=== PATIENT | female | born 1980 | race Caucasian/White ===

== ENCOUNTER 2017-09-19 18:17 | Emergency (ER) | payer MEDICAID ==
[~2017-09-19] VITALS: Ht 162.6 cm; Wt 75.0 kg
[2017-09-19 18:19] VITALS: BP 93/55; PULSE 83; RESP 22; TEMP 98.5; O2SAT 100
[2017-09-19] MEDS ORDERED: NORE-44 PO (18:24)
[2017-09-19] MEDS ORDERED: SODIUM CHLOR 0.9% 1000 ML INJ 1,000 ML IV ONE (18:30)
[2017-09-19] MEDS ORDERED: LORazepam 2 MG/ML VIAL IV PUSH ONE (18:30)
[2017-09-19 18:35] VITALS: BP 135/94; PULSE 81; RESP 19; O2SAT 100
--- NOTE | 2017-09-19 18:36 | PD ---
HPI Chief Complaint: Anxiety Time Seen by Provider: 18:26 Travel History International Travel<30 days: No Contact w/Intl Traveler<30days: No Traveled to known affect area: No History of Present Illness HPI 36yo F with PMH of panic attacks here with another episode of panic attack. Said she has been feeling generalized fatigue for a few days. Pt is hyperventilating and has numbness in her entire body but more in fingers and around mouth. Pt denies any chest pain, vomiting, abdominal pain. PFSH Past Medical History Anxiety: Yes Medical other: Yes (MITRAL VALVE REGERG) ?: Not : 2 Para: 1 : 1 Past Surgical History Section: Yes Social History Alcohol Use: Yes (OCC) Tobacco Use: No Substance Use: No Allergies-Medications (Allergen,Severity, Reaction): Coded Allergies: No Known Allergies (Unverified , 09/19/17) Reported Meds & Prescriptions Reported Meds & Active Scripts Active Reported Microgestin 1.5/30 (Norethindrone-Ethinyl Estradiol) 1.5-30 Mg-Mcg Tab 1 Tab PO DAILY Review of Systems Except as stated in HPI: all other systems reviewed are Neg Physical Exam Narrative GENERAL: 36yo F anxious appearing. SKIN: Focused skin assessment warm/dry. HEAD: Atraumatic. Normocephalic. EYES: Pupils equal and round at 3mm bilaterally. EOMI. ENT: No nasal bleeding or discharge. Mucous membranes pink and moist. NECK: Trachea midline. No JVD. CARDIOVASCULAR: Regular rate and rhythm. No murmur appreciated. RESPIRATORY: No accessory muscle use. Clear to auscultation. Breath sounds equal bilaterally. GASTROINTESTINAL: Abdomen soft, non-tender, nondistended. MUSCULOSKELETAL: No obvious deformities. No clubbing. No cyanosis. No edema. NEUROLOGICAL: Awake and alert. No obvious cranial nerve deficits. Motor grossly within normal limits in all extremities. Normal speech. PSYCHIATRIC: Anxious. Data Data Last Documented VS Vital Signs Date Time Temp Pulse Resp B/P (MAP) Pulse Ox O2 Delivery O2 Flow Rate FiO2 09/19/17 19:35 77 16 132/91 (105) 98 Room Air 09/19/17 18:19 98.5 Orders Orders Complete Blood Count With Diff (09/19/17 18:26) Basic Metabolic Panel (Bmp) (09/19/17 18:26) Thyroid Stimulating Hormone (09/19/17 18:26) Sodium Chlor 0.9% 1000 Ml Inj (Ns 1000 M (09/19/17 18:30) Lorazepam Inj (Ativan Inj) (09/19/17 18:30) Potassium Chloride (Kcl) (09/19/17 19:30) Ed Discharge Order (09/19/17 19:36) Labs Laboratory Tests Test 09/19/17 18:15 White Blood Count 5.2 TH/MM3 Red Blood Count 5.06 MIL/MM3 Hemoglobin 13.9 GM/DL Hematocrit 39.9 % Mean Corpuscular Volume 79.0 FL Mean Corpuscular Hemoglobin 27.4 PG Mean Corpuscular Hemoglobin Concent 34.7 % Red Cell Distribution Width 12.8 % Platelet Count 273 TH/MM3 Mean Platelet Volume 8.5 FL Neutrophils (%) (Auto) 45.4 % Lymphocytes (%) (Auto) 41.6 % Monocytes (%) (Auto) 10.6 % Eosinophils (%) (Auto) 1.9 % Basophils (%) (Auto) 0.5 % Neutrophils # (Auto) 2.4 TH/MM3 Lymphocytes # (Auto) 2.2 TH/MM3 Monocytes # (Auto) 0.6 TH/MM3 Eosinophils # (Auto) 0.1 TH/MM3 Basophils # (Auto) 0.0 TH/MM3 CBC Comment DIFF FINAL Differential Comment Blood Urea Nitrogen 9 MG/DL Creatinine 0.86 MG/DL Random Glucose 88 MG/DL Calcium Level 8.2 MG/DL Sodium Level 138 MEQ/L Potassium Level 3.4 MEQ/L Chloride Level 105 MEQ/L Carbon Dioxide Level 22.3 MEQ/L Anion Gap 11 MEQ/L Estimat Glomerular Filtration Rate 74 ML/MIN Thyroid Stimulating Hormone 3rd Gen 2.880 uIU/ML [facility] Medical Decision Making Medical Screen Exam Complete: Yes Emergency Medical Condition: Yes Interpretation(s) EKG: NSR 37bpm. Normal axis. No ST segment elevation. Differential Diagnosis Anxiety vs. electrolyte abnormality vs. hyperthyroidism Narrative Course 36yo F with history of panic attacks here with c/o what sounds like an episode of panic attack. Pt said she has been more fatigue lately and labs including TSH has been drawn. Pt given ativan. Seen at the end of my shift and sign out to Dr. Canseco to reevaluate and follow up labs. Diagnosis Primary Impression: Anxiety Viktoria Solis DO Sep 19, 2017 18:36
[2017-09-19 18:44] LABS: AUTOMATED NEUTROPHIL # 2.4 TH/MM3 (1.8-7.7); BASOPHIL % 0.5 % (0.0-2.0); EOSINOPHIL # 0.1 TH/MM3 (0-0.4); EOSINOPHIL % 1.9 % (0.0-4.0); HEMATOCRIT 39.9 % (35.0-46.0); HEMOGLOBIN 13.9 GM/DL (11.6-15.3); LYMPH % 41.6 % (9.0-44.0); LYMPHOCYTE # 2.2 TH/MM3 (1.0-4.8); MEAN CORPUSCULAR HEMOGLOBIN 27.4 PG (27.0-34.0); MEAN CORPUSCULAR HGB CONC 34.7 % (32.0-36.0); MEAN PLATELET VOLUME 8.5 FL (7.0-11.0); MONO % 10.6 % (0.0-8.0); MONOCYTE # 0.6 TH/MM3 (0-0.9); NEUT % 45.4 % (16.0-70.0); PLATELET COUNT 273 TH/MM3 (150-450); RED BLOOD COUNT 5.06 MIL/MM3 (4.00-5.30); RED CELL DISTRIBUTION WIDTH 12.8 % (11.6-17.2); WHITE BLOOD COUNT 5.2 TH/MM3 (4.0-11.0)
[2017-09-19 19:01] LABS: BICARBONATE 22.3 MEQ/L (21.0-32.0); CALCIUM 8.2 MG/DL (8.5-10.1); CREATININE 0.86 MG/DL (0.50-1.00)
--- NOTE | 2017-09-19 19:26 | PD ---
Data Data Last Documented VS Vital Signs Date Time Temp Pulse Resp B/P (MAP) Pulse Ox O2 Delivery O2 Flow Rate FiO2 09/19/17 18:35 81 19 135/94 (108) 100 Room Air 09/19/17 18:19 98.5 Orders Orders Complete Blood Count With Diff (09/19/17 18:26) Basic Metabolic Panel (Bmp) (09/19/17 18:26) Thyroid Stimulating Hormone (09/19/17 18:26) Sodium Chlor 0.9% 1000 Ml Inj (Ns 1000 M (09/19/17 18:30) Lorazepam Inj (Ativan Inj) (09/19/17 18:30) Potassium Chloride (Kcl) (09/19/17 19:30) Labs Laboratory Tests Test 09/19/17 18:15 White Blood Count 5.2 TH/MM3 Red Blood Count 5.06 MIL/MM3 Hemoglobin 13.9 GM/DL Hematocrit 39.9 % Mean Corpuscular Volume 79.0 FL Mean Corpuscular Hemoglobin 27.4 PG Mean Corpuscular Hemoglobin Concent 34.7 % Red Cell Distribution Width 12.8 % Platelet Count 273 TH/MM3 Mean Platelet Volume 8.5 FL Neutrophils (%) (Auto) 45.4 % Lymphocytes (%) (Auto) 41.6 % Monocytes (%) (Auto) 10.6 % Eosinophils (%) (Auto) 1.9 % Basophils (%) (Auto) 0.5 % Neutrophils # (Auto) 2.4 TH/MM3 Lymphocytes # (Auto) 2.2 TH/MM3 Monocytes # (Auto) 0.6 TH/MM3 Eosinophils # (Auto) 0.1 TH/MM3 Basophils # (Auto) 0.0 TH/MM3 CBC Comment DIFF FINAL Differential Comment Blood Urea Nitrogen 9 MG/DL Creatinine 0.86 MG/DL Random Glucose 88 MG/DL Calcium Level 8.2 MG/DL Sodium Level 138 MEQ/L Potassium Level 3.4 MEQ/L Chloride Level 105 MEQ/L Carbon Dioxide Level 22.3 MEQ/L Anion Gap 11 MEQ/L Estimat Glomerular Filtration Rate 74 ML/MIN Thyroid Stimulating Hormone 3rd Gen 2.880 uIU/ML MDM Medical Record Reviewed: Yes Supervised Visit with VIC: No Narrative Course During the course of the patient's emergency department visit, the patient's history, examination, and differential diagnosis were reviewed with the patient. The patient was placed on a cardiac monitor technician with oximetry and frequent blood pressure monitoring. The patient had IV access obtained and blood work sent for analysis. The patient's case was checked out to me by Dr. Solis. Please see her complete history and physical. The patient presented with symptoms of anxiety and panic attack with a history of panic disorder. The patient was initially provided Ativan 1 mg IV, normal saline IV fluid bolus. The patient's laboratory studies were reviewed and remarkable for a CBC that shows a white count of 5.2, hemoglobin 13.9, platelets 273 with 10.6 monocytes, BMP is remarkable for a potassium of 3.4, GFR 74, calcium 8.2, TSH 2.88. The patient will be discharged home to follow-up with her primary care physician. The patient is resting comfortably and feels better, is alert and in no distress. The patient's results and examination findings were discussed with the patient. The repeat examination is unremarkable and benign. The history, exam, diagnostic testing, and current condition do not suggest any significant pathology to warrant further testing, continued ED treatment, admission, or surgical evaluation at this point. The vital signs have been stable. The patient does not have uncontrollable pain, intractable vomiting, or other significant symptoms. The patient's condition is stable and appropriate for discharge. The patient will pursue further outpatient evaluation with a primary care physician or other designated or consulting physician as indicated in the discharge instructions. The patient expressed understanding and was agreeable with this plan. Diagnosis Primary Impression: Panic attack Referrals: Primary Care Physician 2 days Patient Instructions: General Instructions, Panic Attack (ED) Med/Other Pt SpecificInfo: No Change to Meds Disposition: 01 DISCHARGE HOME Condition: Stable Sophia Canseco MD Sep 19, 2017 19:26
[2017-09-19] MEDS ORDERED: POTASSIUM CHLORIDE 20 MEQ CONTROLLED RELEASE TAB PO ONE (19:30)
[2017-09-19 19:35] VITALS: BP 132/91; PULSE 77; RESP 16; O2SAT 98
== END 2017-09-19 19:58 | disposition home or self-care (01) ==
LOC: NEPE 18:17
DX: F41.0 Panic disorder [episodic paroxysmal anxiety] (principal); R53.83 Other fatigue
CPT/HCPCS: 80048; 84443; 85025; 96374; 99284; J2060; J7030